=== PATIENT | male | born 1980 | race Caucasian/White ===

== ENCOUNTER 2018-09-12 11:45 | Emergency (ER) | payer SELFPAY ==
[~2018-09-12] VITALS: Ht 172.7 cm; Wt 72.6 kg
--- NOTE | 2018-09-12 11:55 | NUR ---
PATIENT STATES HE LIVES IN [facility] WITH HIS GRANDMOTHER AND IS GOING TO TAKE A GRAYHOUND IN THE NEXT DAY TO GO BACK AND LIVE WITH HER. DENIES BEING HOMELESS.
--- NOTE | 2018-09-12 12:16 | NUR ---
PT A/OX4, PRESENTS TO THE ER C/O BILATERAL HAND RASH X 1 WEEK. PT REPORTS ITCHINESS ASSOCIATED W/ THE SKIN RASH. EDEMA PRESENTS ON BILATERAL HANDS. SKIN RASH IS BLANCHING, PT DENIES PAIN. PT DENIES C/P, SOB, N/V/D, DIZZINESS, HEADACHE.
--- NOTE | 2018-09-12 12:27 | NUR ---
[employer] AT BEDSIDE.
--- NOTE | 2018-09-12 12:31 | NUR ---
PT PROVIDED W/ A MEAL TRAY.
[2018-09-12 12:44] LABS: BASOPHILS # (AUTO) 0.1 K/uL (0.0-8.0); BASOPHILS % (AUTO) 1.1 % (0.0-2.0); EOSINOPHILS # (AUTO) 0.2 K/uL (0.0-0.7); HEMATOCRIT 36.8 % (36.7-47.1); HEMOGLOBIN 12.6 g/dL (12.5-16.3); LYMPHOCYTES # (AUTO) 1.8 K/uL (20.0-40.0); LYMPHOCYTES % (AUTO) 36.7 % (20.5-51.5); MEAN CORPUSCULAR HEMOGLOBIN 31.9 uug (23.8-33.4); MEAN CORPUSCULAR HGB CONC 34 g/dL (32.5-36.3); MEAN CORPUSCULAR VOLUME 93.3 fL (73.0-96.2); MONOCYTES # (AUTO) 0.5 K/uL (2.0-10.0); MONOCYTES % (AUTO) 10.2 % (0.0-11.0); NEUTROPHILS # (AUTO) 2.4 K/uL (1.8-8.9); PLATELET COUNT (AUTO) 115 K/uL (152-348); RED BLOOD CELL COUNT(AUTO) 3.95 MIL/uL (4.06-5.63)
[2018-09-12 12:54] LABS: CREATININE 0.9 mg/dL (0.6-1.3); POTASSIUM 3.7 mmol/L (3.5-5.1)
[2018-09-12 13:00] LABS: BILIRUBIN,DIRECT 1.2 mg/dL (0.0-0.2); BILIRUBIN,TOTAL 2.2 mg/dL (0.2-1.0); TOTAL PROTEIN, SERUM 6.9 g/dL (6.4-8.2)
--- NOTE | 2018-09-12 13:58 | NUR ---
Patient discharged to home in stable conditon. Written and verbal after care instructions given. Patient verbalizes understanding of instructions. ALL BELONGINGS W/ PT. PT SELF-AMBULATED W/O DIFFICULTY.
[2018-09-12 14:02] VITALS: BP 111/70
== END 2018-09-12 14:03 | disposition home or self-care (01) ==
LOC: ER 11:46
DX: L25.9 Unspecified contact dermatitis, unspecified cause (principal); K75.9 Inflammatory liver disease, unspecified; L03.113 Cellulitis of right upper limb; L03.114 Cellulitis of left upper limb; F17.200 Nicotine dependence, unspecified, uncomplicated; Z90.89 Acquired absence of other organs
CPT/HCPCS: 36415; 70030-TC; 71045; 85025; 85730; 93005; A4663